=== PATIENT | male | born 1970 | race Two or more races ===

== ENCOUNTER 2022-05-27 15:38 | Inpatient (IN) | payer OTHER ==
[2022-05-27] MEDS: MELATONIN 5 MG TABLETS PO SCH (12:02)
[2022-05-27] MEDS: THIAMINE HCL 100 MG TABLET (FP) PO SCH (12:02)
[2022-05-27 18:07] VITALS: BMI 23.9
[2022-05-27] MEDS ORDERED: MAGNESIUM HYDROX 2400MG/30ML ORAL SUSPENSION 30 ML CUP PO PRN (19:52)
[2022-05-27] MEDS ORDERED: guaiFENesin 200 MG/10 ML 10 ML UNIT-DOSE CUPS PO PRN (19:52)
[2022-05-27] MEDS ORDERED: NICOTINE 10 MG CARTRIDGE (INHALER) IH PRN (19:52)
[2022-05-27] MEDS ORDERED: MAGNESIUM CITRATE 300 ML BOTTLE PO PRN (19:52)
[2022-05-27] MEDS ORDERED: MAG HYDROX/AL HYDROX/SIMETH 30 ML UNIT-DOSE CUP PO PRN (19:52)
[2022-05-27] MEDS ORDERED: P-EPHED 60MG/TRIPROLIDI 2.5MG TABLET PO PRN (19:52)
[2022-05-27] MEDS ORDERED: LOPERAMIDE HCL 2 MG CAPSULE PO PRN (19:52)
[2022-05-28] MEDS ORDERED: TUBERCULIN PPD 5 TU/0.1ML VIAL ID ONE (06:27)
[2022-05-28] MEDS ORDERED: methaDONE HCL 10 MG TABLET PO SCH (07:45)
[2022-05-28] MEDS ORDERED: methaDONE HCL 10 MG TABLET PO ONE (09:11)
[2022-05-28] MEDS ORDERED: methaDONE 40 MG, methaDONE 10 MG PO ONE (09:15)
[2022-05-28] MEDS: methaDONE 40 MG, methaDONE 10 MG PO SCH (09:21)
[2022-05-28] MEDS: PRENATAL VITAMINS W/ FOLIC ACID TABLET (FP) PO SCH (09:24)
[2022-05-28 15:23] LABS: HEMATOCRIT 36.1 % (35.4-49); MCH 32.1 pg (25.7-33.7); MCHC 33.3 g/dl (32.0-35.9); MEAN CELL VOLUME 96.4 fl (80-96); MEAN PLT VOLUME 7.4 fl (7.5-11.1); PLATELET COUNT 208 10^3/uL (134-434); RBC 3.74 M/mm3 (4.00-5.60); RDW 13.5 % (11.9-15.9); WHITE BLOOD COUNT 3.5 K/mm3 (4.0-10.0)
[2022-05-28 15:26] LABS: PH,URINE 5.5 (5.0-8.0); URINE APPEARANCE CLEAR; URINE BILIRUBIN NEGATIVE (NEGATIVE); URINE COLOR YELLOW; URINE GLUCOSE (UA) NEGATIVE (NEGATIVE); URINE KETONE TRACE (NEGATIVE); URINE LEUK ESTERASE NEGATIVE (NEGATIVE); URINE NITRITE NEGATIVE (NEGATIVE); URINE PROTEIN NEGATIVE (NEGATIVE); URINE UROBILINOGEN 0.2 mg/dL (0.2-1.0)
[2022-05-28] MEDS: cloNIDine HCL 0.1 MG TABLET PO PRN (15:49)
[2022-05-28 18:09] LABS: CALCIUM 8.8 mg/dL (8.5-10.1)
[2022-05-28 18:11] LABS: ALBUMIN 3.4 g/dl (3.4-5.0); CREATININE 0.8 mg/dL (0.55-1.3)
[2022-05-28 18:12] LABS: BLOOD UREA NITROGEN 15.9 mg/dL (7-18)
[2022-05-28 18:13] LABS: TOT PROT 6.4 g/dl (6.4-8.2)
[2022-05-28 18:15] LABS: BILIRUBIN,TOTAL 0.3 mg/dL (0.2-1)
[2022-05-28] MEDS: MELATONIN 5 MG TABLETS PO SCH (21:39)
[2022-05-28] MEDS: THIAMINE HCL 100 MG TABLET (FP) PO SCH (21:39)
[2022-05-29] MEDS: methaDONE 40 MG, methaDONE 10 MG PO SCH (06:16)
[2022-05-29] MEDS: PRENATAL VITAMINS W/ FOLIC ACID TABLET (FP) PO SCH (10:55)
[2022-05-29] MEDS: THIAMINE HCL 100 MG TABLET (FP) PO SCH (21:29)
[2022-05-29] MEDS: MELATONIN 5 MG TABLETS PO SCH (21:29)
[2022-05-29] MEDS: cloNIDine HCL 0.1 MG TABLET PO PRN (21:29)
[2022-05-30] MEDS: methaDONE 40 MG, methaDONE 10 MG PO SCH (06:30)
[2022-05-30] MEDS: PRENATAL VITAMINS W/ FOLIC ACID TABLET (FP) PO SCH (09:59)
[2022-05-30] MEDS: THIAMINE HCL 100 MG TABLET (FP) PO SCH (21:26)
[2022-05-30] MEDS: MELATONIN 5 MG TABLETS PO SCH (21:26)
[2022-05-30] MEDS: cloNIDine HCL 0.1 MG TABLET PO PRN (21:26)
[2022-05-31] MEDS: PRENATAL VITAMINS W/ FOLIC ACID TABLET (FP) PO SCH (10:10)
[2022-05-31] MEDS: methaDONE 40 MG, methaDONE 10 MG PO SCH (10:10)
[2022-05-31] MEDS: cloNIDine HCL 0.1 MG TABLET PO PRN (10:11)
[2022-05-31] MEDS: THIAMINE HCL 100 MG TABLET (FP) PO SCH (21:35)
[2022-05-31] MEDS: MELATONIN 5 MG TABLETS PO SCH (21:35)
[2022-06-01] MEDS: PRENATAL VITAMINS W/ FOLIC ACID TABLET (FP) PO SCH (09:38)
[2022-06-01] MEDS: methaDONE 40 MG, methaDONE 10 MG PO SCH (09:38)
[2022-06-01] MEDS: hydrOXYzine PAMOATE 25 MG CAPSULE (FP) PO PRN (21:25)
[2022-06-01] MEDS: THIAMINE HCL 100 MG TABLET (FP) PO SCH (21:25)
[2022-06-01] MEDS: MELATONIN 5 MG TABLETS PO SCH (21:25)
[2022-06-02] MEDS: methaDONE 40 MG, methaDONE 10 MG PO SCH (10:00)
[2022-06-02] MEDS: PRENATAL VITAMINS W/ FOLIC ACID TABLET (FP) PO SCH (10:00)
[2022-06-02] MEDS: THIAMINE HCL 100 MG TABLET (FP) PO SCH (21:56)
[2022-06-02] MEDS: MELATONIN 5 MG TABLETS PO SCH (21:56)
[2022-06-03] MEDS: PRENATAL VITAMINS W/ FOLIC ACID TABLET (FP) PO SCH (09:53)
[2022-06-03] MEDS: methaDONE 40 MG, methaDONE 10 MG PO SCH (09:54)
[2022-06-03] MEDS: THIAMINE HCL 100 MG TABLET (FP) PO SCH (21:29)
[2022-06-03] MEDS: MELATONIN 5 MG TABLETS PO SCH (21:29)
[2022-06-03] MEDS: hydrOXYzine PAMOATE 25 MG CAPSULE (FP) PO PRN (21:30)
[2022-06-04] MEDS: methaDONE 40 MG, methaDONE 10 MG PO SCH (10:12)
[2022-06-04] MEDS: PRENATAL VITAMINS W/ FOLIC ACID TABLET (FP) PO SCH (10:12)
[2022-06-04] MEDS: ACETAMINOPHEN 325 MG TABLET (FP) PO PRN (10:14)
[2022-06-04] MEDS: MELATONIN 5 MG TABLETS PO SCH (21:31)
[2022-06-04] MEDS: THIAMINE HCL 100 MG TABLET (FP) PO SCH (21:31)
[2022-06-05] MEDS: methaDONE 40 MG, methaDONE 10 MG PO SCH (10:04)
[2022-06-05] MEDS: PRENATAL VITAMINS W/ FOLIC ACID TABLET (FP) PO SCH (10:04)
[2022-06-05] MEDS: THIAMINE HCL 100 MG TABLET (FP) PO SCH (21:53)
[2022-06-05] MEDS: MELATONIN 5 MG TABLETS PO SCH (21:53)
[2022-06-06] MEDS: PRENATAL VITAMINS W/ FOLIC ACID TABLET (FP) PO SCH (10:19)
[2022-06-06] MEDS: methaDONE 40 MG, methaDONE 10 MG PO SCH (10:19)
[2022-06-06] MEDS: THIAMINE HCL 100 MG TABLET (FP) PO SCH (22:45)
[2022-06-06] MEDS: MELATONIN 5 MG TABLETS PO SCH (22:45)
[2022-06-07] MEDS: PRENATAL VITAMINS W/ FOLIC ACID TABLET (FP) PO SCH (09:42)
[2022-06-07] MEDS: methaDONE 40 MG, methaDONE 10 MG PO SCH (09:42)
[2022-06-07] MEDS: THIAMINE HCL 100 MG TABLET (FP) PO SCH (22:39)
[2022-06-07] MEDS: MELATONIN 5 MG TABLETS PO SCH (22:39)
[2022-06-08] MEDS: methaDONE 40 MG, methaDONE 10 MG PO SCH (09:48)
[2022-06-08] MEDS: PRENATAL VITAMINS W/ FOLIC ACID TABLET (FP) PO SCH (09:48)
[2022-06-08] MEDS: ACETAMINOPHEN 325 MG TABLET (FP) PO PRN (09:49)
[2022-06-08] MEDS: MELATONIN 5 MG TABLETS PO SCH (22:36)
[2022-06-08] MEDS: THIAMINE HCL 100 MG TABLET (FP) PO SCH (22:36)
[2022-06-09] MEDS: PRENATAL VITAMINS W/ FOLIC ACID TABLET (FP) PO SCH (10:18)
[2022-06-09] MEDS: methaDONE 40 MG, methaDONE 10 MG PO SCH (10:19)
[2022-06-09] MEDS: MELATONIN 5 MG TABLETS PO SCH (21:33)
[2022-06-09] MEDS: THIAMINE HCL 100 MG TABLET (FP) PO SCH (21:33)
[2022-06-10] MEDS: PRENATAL VITAMINS W/ FOLIC ACID TABLET (FP) PO SCH (10:22)
[2022-06-10] MEDS: methaDONE 40 MG, methaDONE 10 MG PO SCH (10:22)
[2022-06-10] MEDS: ACETAMINOPHEN 325 MG TABLET (FP) PO PRN (10:23)
[2022-06-10] MEDS: THIAMINE HCL 100 MG TABLET (FP) PO SCH (21:27)
[2022-06-10] MEDS: MELATONIN 5 MG TABLETS PO SCH (21:27)
[2022-06-10] MEDS: hydrOXYzine PAMOATE 25 MG CAPSULE (FP) PO PRN (21:28)
[2022-06-11] MEDS: methaDONE 40 MG, methaDONE 10 MG PO SCH (09:26)
[2022-06-11] MEDS: PRENATAL VITAMINS W/ FOLIC ACID TABLET (FP) PO SCH (09:26)
[2022-06-11] MEDS: THIAMINE HCL 100 MG TABLET (FP) PO SCH (21:35)
[2022-06-11] MEDS: MELATONIN 5 MG TABLETS PO SCH (21:35)
[2022-06-12] MEDS: PRENATAL VITAMINS W/ FOLIC ACID TABLET (FP) PO SCH (10:11)
[2022-06-12] MEDS: methaDONE 40 MG, methaDONE 10 MG PO SCH (10:11)
[2022-06-12 18:39] VITALS: BP 101/66; PULSE 87; RESP 17; TEMP 97.5
== END 2022-06-12 17:27 | DRG 772 ==
LOC: YASAS 15:38 → Y3W 23:03
PROVIDERS: ADMIT Allergy & Immunology; ATTEND Psychiatry & Neurology Pain Medicine
PROC: HZ42ZZZ Group Counseling for Substance Abuse Treatment, Cognitive-Behavioral (ICD-10-PCS; principal; 2022-05-27)
DX: F11.20 Opioid dependence, uncomplicated (principal); F14.20 Cocaine dependence, uncomplicated; F12.20 Cannabis dependence, uncomplicated; F22 Delusional disorders; F29 Unspecified psychosis not due to a substance or known physiological condition; F39 Unspecified mood [affective] disorder; F60.9 Personality disorder, unspecified; F43.10 Post-traumatic stress disorder, unspecified; Z87.891 Personal history of nicotine dependence
CPT/HCPCS: 36415; 80053; 81003; 85027; 86780; 93005; 93010; C9803-CS; U0003; U0005

== ENCOUNTER 2022-06-12 20:50 | Inpatient (IN) | payer OTHER ==
[2022-06-12 21:40] VITALS: BMI 25.8
[2022-06-12] MEDS: MELATONIN 5 MG TABLETS PO SCH (22:00)
[2022-06-12] MEDS ORDERED: MAGNESIUM HYDROX 2400MG/30ML ORAL SUSPENSION 30 ML CUP PO PRN (22:30)
[2022-06-12] MEDS ORDERED: MAG HYDROX/AL HYDROX/SIMETH 30 ML UNIT-DOSE CUP PO PRN (22:30)
[2022-06-12] MEDS ORDERED: IBUPROFEN 400 MG TABLET (FP) PO PRN (22:30)
[2022-06-12] MEDS ORDERED: guaiFENesin 200 MG/10 ML 10 ML UNIT-DOSE CUPS PO PRN (22:30)
[2022-06-12] MEDS ORDERED: hydrOXYzine PAMOATE 25 MG CAPSULE (FP) PO PRN (22:30)
[2022-06-12] MEDS ORDERED: MAGNESIUM CITRATE 300 ML BOTTLE PO PRN (22:30)
[2022-06-12] MEDS ORDERED: LOPERAMIDE HCL 2 MG CAPSULE PO PRN (22:30)
[2022-06-12] MEDS ORDERED: P-EPHED 60MG/TRIPROLIDI 2.5MG TABLET PO PRN (22:30)
[2022-06-12] MEDS ORDERED: BENZOCAINE/MENTHOL (CHLORASEPTIC ) LOZENGE MM PRN (22:30)
[2022-06-12] MEDS ORDERED: ACETAMINOPHEN 325 MG TABLET (FP) PO PRN (22:30)
[2022-06-12] MEDS ORDERED: QUEtiapine FUMARATE 100 MG TABLET (FP) PO ONE (22:35)
[2022-06-13] MEDS ORDERED: methaDONE HCL 10 MG TABLET PO SCH (10:00)
[2022-06-13] MEDS: PRENATAL VITAMINS W/ FOLIC ACID TABLET (FP) PO SCH (10:00)
[2022-06-13] MEDS ORDERED: methaDONE 40 MG, methaDONE 10 MG PO ONE (10:15)
[2022-06-13] MEDS: MELATONIN 5 MG TABLETS PO SCH (21:33)
[2022-06-13] MEDS: THIAMINE HCL 100 MG TABLET (FP) PO SCH (21:33)
[2022-06-13] MEDS: QUEtiapine FUMARATE 50 MG TABLET PO SCH (21:33)
[2022-06-14] MEDS ORDERED: methaDONE 40 MG, methaDONE 10 MG PO SCH (06:00)
[2022-06-14] MEDS: PRENATAL VITAMINS W/ FOLIC ACID TABLET (FP) PO SCH (11:04)
[2022-06-14] MEDS: QUEtiapine FUMARATE 50 MG TABLET PO SCH ×2 (11:06→21:33)
[2022-06-14] MEDS: methaDONE 40 MG, methaDONE 10 MG PO SCH (11:06)
[2022-06-14] MEDS ORDERED: QUEtiapine FUMARATE 25 MG TABLET PO PRN ×2 (11:35→11:38)
[2022-06-14] MEDS: THIAMINE HCL 100 MG TABLET (FP) PO SCH (21:33)
[2022-06-14] MEDS: MELATONIN 5 MG TABLETS PO SCH (21:33)
[2022-06-15] MEDS: PRENATAL VITAMINS W/ FOLIC ACID TABLET (FP) PO SCH (09:28)
[2022-06-15] MEDS: methaDONE 40 MG, methaDONE 10 MG PO SCH (09:28)
[2022-06-15] MEDS: QUEtiapine FUMARATE 50 MG TABLET PO SCH ×2 (09:28→21:55)
[2022-06-15] MEDS: MELATONIN 5 MG TABLETS PO SCH (21:55)
[2022-06-15] MEDS: THIAMINE HCL 100 MG TABLET (FP) PO SCH (21:56)
[2022-06-16] MEDS: methaDONE 40 MG, methaDONE 10 MG PO SCH (09:22)
[2022-06-16] MEDS: PRENATAL VITAMINS W/ FOLIC ACID TABLET (FP) PO SCH (09:27)
[2022-06-16] MEDS ORDERED: methaDONE HCL 40 MG DISPERSABLE TABLET ONE (09:27)
[2022-06-16] MEDS: QUEtiapine FUMARATE 50 MG TABLET PO SCH ×2 (09:27→21:50)
[2022-06-16 18:44] VITALS: RESP 18
[2022-06-16] MEDS: MELATONIN 5 MG TABLETS PO SCH (21:51)
[2022-06-16] MEDS: THIAMINE HCL 100 MG TABLET (FP) PO SCH (21:51)
[2022-06-17 08:48] VITALS: BP 102/65; PULSE 71; TEMP 97.8
[2022-06-17] MEDS ORDERED: methaDONE HCL 10 MG TABLET PO ONE (08:57)
[2022-06-17] MEDS ORDERED: methaDONE 40 MG, methaDONE 10 MG PO ONE (09:00)
== END 2022-06-17 08:55 | disposition home or self-care (01) | DRG 772 ==
LOC: YASAS 20:50 → Y3W 23:42
PROVIDERS: ADMIT Allergy & Immunology; ATTEND Surgery
PROC: HZ42ZZZ Group Counseling for Substance Abuse Treatment, Cognitive-Behavioral (ICD-10-PCS; principal; 2022-06-12)
DX: F11.20 Opioid dependence, uncomplicated (principal); F14.20 Cocaine dependence, uncomplicated; F12.20 Cannabis dependence, uncomplicated; F22 Delusional disorders; F41.9 Anxiety disorder, unspecified; F32.A Depression, unspecified; F60.9 Personality disorder, unspecified; F43.10 Post-traumatic stress disorder, unspecified; Z87.891 Personal history of nicotine dependence; W19.XXXA Unspecified fall, initial encounter; Y93.89 Activity, other specified; Y92.232 Corridor of hospital as the place of occurrence of the external cause
CPT/HCPCS: 93005; 93010